=== PATIENT | female | born 1985 | race Asian ===

== ENCOUNTER 2017-03-11 05:50 | Inpatient (IN) | payer SELFPAY ==
[~2017-03-11] VITALS: Ht 170 cm; Wt 68.0 kg
[2017-03-11] MEDS ORDERED: OXYTOCIN 20 UNITS in LACTATED RINGERS 1,000 ML IV SCH (08:54)
[2017-03-11] MEDS ORDERED: AMPICILLIN 2,000 MG in NACL 0.9% 100 ML IV SCH ×2 (08:55→14:30)
[2017-03-11] MEDS ORDERED: OXYTOCIN 10 UNITS/ML VIAL IM SCH (08:55)
[2017-03-11 09:00] VITALS: BP 109/69
[2017-03-11 09:17] LABS: BASOPHILS # (AUTO) 0.1 K/uL (0.00-0.22); BASOPHILS % (AUTO) 0.7 % (0.0-2.0); EOSINOPHILS % (AUTO) 0.3 % (0.0-4.0); HEMATOCRIT 36.5 % (36-48); HEMOGLOBIN 12.6 g/dL (12.0-16.0); LYMPHOCYTES # (AUTO) 1.3 K/uL (2.5-16.5); LYMPHOCYTES % (AUTO) 15.4 % (20.5-51.1); MEAN CORPUSCULAR HEMOGLOBIN 32 pg (27-31); MEAN CORPUSCULAR HGB CONC 34 g/dL (33-37); MEAN CORPUSCULAR VOLUME 94 fL (80-94); MONOCYTES # (AUTO) 0.5 K/uL (0.8-1.0); MONOCYTES % (AUTO) 5.5 % (1.7-9.3); NEUTROPHILS # (AUTO) 6.4 K/uL (1.8-7.7); NEUTROPHILS % (AUTO) 78.1 % (42.2-75.2); PLATELET COUNT (AUTO) 110 K/uL (140-450); RED BLOOD CELL COUNT(AUTO) 3.88 MIL/uL (4.20-5.40); RED CELL DISTRIBUTION WIDTH 13.1 % (11.6-13.7); WHITE BLOOD COUNT (AUTO) 8.3 K/uL (4.8-10.8)
[2017-03-11 09:29] LABS: ALBUMIN 2.8 g/dL (3.4-5.0); ANION GAP 14.2 (8-16); CARBON DIOXIDE 24.7 mmol/L (21-32); CREATININE 0.6 mg/dL (0.6-1.3); POTASSIUM 3.9 mmol/L (3.5-5.1); TOTAL BILIRUBIN 0.9 mg/dL (0.0-1.0)
[2017-03-11] MEDS ORDERED: PROMETHAZINE 25 MG/ML VIAL ONE (09:29)
[2017-03-11] MEDS ORDERED: NALBUPHINE HYDROCHLORIDE 10 MG/ML VIAL ONE ×2 (09:29→13:25)
--- NOTE | 2017-03-11 09:29 | NUR ---
PATIENT HAS BEEN SCREENED AND CATEGORIZED LOW NUTRITION RISK. PATIENT WILL BE SEEN WITHIN 7 DAYS OF ADMISSION. 03/17/[address]
[2017-03-11] MEDS ORDERED: NALBUPHINE 10 MG/ML AMP IVP PRN (09:30)
[2017-03-11] MEDS ORDERED: PROMETHAZINE 25 MG/ML VIAL IVP PRN (09:30)
[2017-03-11] MEDS ORDERED: BUPIVACAINE 0.125%/NS PREMIX 250 ML ONE (09:56)
[2017-03-11] MEDS ORDERED: AMPICILLIN 2,000 MG VIAL ONE ×2 (10:39→15:08)
[2017-03-11 10:55] LABS: APPEARANCE,URINE CLEAR (CLEAR); BILIRUBIN,URINE NEGATIVE (NEGATIVE); BLOOD, URINE TRACE-I (NEGATIVE); COLOR,URINE YELLOW (YELLOW); LEUKOCYTE ESTERASE ,URINE NEGATIVE (NEGATIVE); NITRITE, URINE NEGATIVE (NEGATIVE); UGLUCOSE NEGATIVE (NEGATIVE)
[2017-03-11 11:08] LABS: RBC,URINE 0-5 (RARE) /HPF (0-5); WBC,URINE NONE SEEN /HPF (0-5)
[2017-03-11] MEDS: LACTATED RINGERS 1,000 ML IV SCH ×2 (11:47→13:06)
[2017-03-11] MEDS ORDERED: OXYTOCIN 20 UNITS/LR PREMIX 1,000 ML IV ONE (11:49)
[2017-03-11] MEDS ORDERED: OXYTOCIN 10 UNITS/ML VIAL ONE (12:09)
[2017-03-11] MEDS ORDERED: AMPICILLIN 1,000 MG in NACL 0.9% 50 ML IV SCH (13:00)
[2017-03-11] MEDS ORDERED: PREN-380 PO (13:38)
[2017-03-11] MEDS ORDERED: MEASLES, MUMPS, AND RUBELLA 1 VIAL SQVAC PRN (16:30)
[2017-03-11] MEDS ORDERED: METHYLERGONOVINE 0.2 MG/ML AMP IM PRN (16:30)
[2017-03-11] MEDS ORDERED: TEMAZEPAM 15 MG CAP PO PRN (16:30)
[2017-03-11] MEDS ORDERED: OXYTOCIN 10 UNITS/ML VIAL IM PRN (16:30)
[2017-03-11] MEDS ORDERED: IBUPROFEN 800 MG TAB PO PRN (16:30)
[2017-03-11] MEDS ORDERED: oxyCODONE/APAP 5/325 MG 1 TAB TAB PO PRN (16:30)
[2017-03-11] MEDS ORDERED: BENZOCAINE/MENTHOL 20%-0.5% 60 GM CAN TP PRN (16:30)
[2017-03-11] MEDS ORDERED: HYDROcodone/APAP 5/325 MG 1 TAB TAB PO PRN (16:30)
[2017-03-11] MEDS ORDERED: INFLUENZA VIRUS VACCINE QUAD 0.5 ML SYR IMVAC SCH (19:10)
[2017-03-11] MEDS ORDERED: DOCUSATE SOD/SENNA 50/8.6 MG 1 TAB PO SCH (21:00)
[2017-03-12 06:11] LABS: HEMOGLOBIN 8.8 g/dL (12.0-16.0)
[2017-03-12] MEDS ORDERED: BETHANECHOL 25 MG TAB PO SCH ×3 (08:00→12:00)
[2017-03-12 13:36] LABS: RAPID PLASMA REAGIN NON-REACTIVE (Non Reactiv)
[2017-03-12] MEDS: BETHANECHOL 25 MG TAB PO SCH ×2 (15:40→20:00)
[2017-03-12] MEDS: FERROUS SULFATE 325 MG TABEC PO SCH (17:48)
[2017-03-13] MEDS: BETHANECHOL 25 MG TAB PO SCH ×2 (01:58→09:44)
[2017-03-13] MEDS: FERROUS SULFATE 325 MG TABEC PO SCH (09:44)
== END 2017-03-13 16:40 | disposition home or self-care (01) | DRG 775 ==
LOC: MLD 05:50 → MFCC 20:40
PROVIDERS: ADMIT Obstetrics & Gynecology; ATTEND Obstetrics & Gynecology
PROC: 10E0XZZ Delivery of Products of Conception, External Approach (ICD-10-PCS; principal; 2017-03-11)
PROC: 0W8NXZZ Division of Female Perineum, External Approach (ICD-10-PCS; 2017-03-11)
PROC: 00HU33Z Insertion of Infusion Device into Spinal Canal, Percutaneous Approach (ICD-10-PCS; 2017-03-11)
PROC: 3E0R3BZ Introduction of Anesthetic Agent into Spinal Canal, Percutaneous Approach (ICD-10-PCS; 2017-03-11)
PROC: 3E0234Z Introduction of Serum, Toxoid and Vaccine into Muscle, Percutaneous Approach (ICD-10-PCS; 2017-03-12)
PROC: 3E0234Z Introduction of Serum, Toxoid and Vaccine into Muscle, Percutaneous Approach (ICD-10-PCS; 2017-03-12)
DX: O80 Encounter for full-term uncomplicated delivery (principal); Z23 Encounter for immunization; Z37.0 Single live birth; Z3A.38 38 weeks gestation of pregnancy
CPT/HCPCS: 36415; 51702; 59409; 80053; 81001; 85018; 85025; 86592; 86886; 86900; 86901; 90658; 90715; C1758; J0290; J2300; J2550; J2590; J3490; J7120